=== PATIENT | female | born 1975 | race Caucasian/White ===

== ENCOUNTER 2022-12-12 05:44 | Day surgery (SDC) | payer SELFPAY ==
[2022-12-04 16:29] LABS: BASOPHILS % (AUTO) 0.5 % (0-1); EOSINOPHILS # (AUTO) 0.2 X10'3 (0-0.9); EOSINOPHILS % (AUTO) 2.3 % (0-6); LYMPHOCYTES # (AUTO) 1.2 X10'3 (1.1-4.8); LYMPHOCYTES % (AUTO) 18.7 % (21-51); MEAN CORPUSCULAR HEMOGLOBIN 31.4 PG (27.0-31.0); MEAN CORPUSCULAR HGB CONC 33.2 g/dL (33.0-36.5); MEAN CORPUSCULAR VOLUME 94.6 FL (78-98); MEAN PLATELET VOLUME 8.4 FL (7.4-10.4); MONOCYTES # (AUTO) 0.6 X10'3 (0-0.9); MONOCYTES % (AUTO) 9.1 % (2-12); NEUTROPHILS # (AUTO) 4.5 X10'3 (1.8-7.7); NEUTROPHILS % (AUTO) 69.4 % (42-75); PRE OP HEMATOCRIT 41.2 % (35.0-45.0); PRE OP HEMOGLOBIN 13.7 g/dL (12.0-16.0); PRE OP PLATELET COUNT 256 X10'3 (140-440); RED BLOOD COUNT 4.36 X10'6 (4.20-5.60); RED CELL DISTRIBUTION WIDTH 13.1 % (11.5-14.5)
[2022-12-04 16:44] LABS: HCG SERUM QL NEGATIVE
[2022-12-04 16:47] LABS: ALBUMIN 4.1 G/DL (3.4-5.0); ALBUMIN/GLOBULIN RATIO 1.2 (1.1-1.5); ALKALINE PHOSPHATASE 54 IU/L (46-116); BLOOD UREA NITROGEN 17 MG/DL (7-18); BUN/CREATININE RATIO 17.3 (6.6-38.0); CALCIUM 9.3 MG/DL (8.5-10.1); CHLORIDE 102 MMOL/L (99-107); CREATININE 0.98 MG/DL (0.40-0.90); PRE OP ALT 22 U/L (30-65); PRE OP ANION GAP 7 (8-16); PRE OP AST 16 U/L (10-37); PRE OP BILIRUB, TOTAL 0.3 MG/DL (0.0-1.0); PRE OP GLUCOSE 98 MG/DL (70-104); PRE OP POTASSIUM 3.9 MMOL/L (3.4-5.1); PRE OP SODIUM 140 MMOL/L (135-145); TOTAL CARBON DIOXIDE 30.9 MMOL/L (24-32); TOTAL PROTEIN 7.4 G/DL (6.4-8.2); eGFR 61 ML/MIN
[~2022-12-12] VITALS: Ht 165.1 cm; Wt 69.2 kg
[2022-12-12] VITALS (10 sets, daily range): BP systolic 99–124; BP diastolic 64–86
[~2022-12-12 05:44] MED LIST: MULTI VITAMIN; OMEGA 3; VITAMIN B12; VITAMIN C; VITAMIN D; ceFAZolin inj. 2,000 MG in dextrose 5%-water 100 ML IV ONE; famotidine 20mg tablet PO ONE; ringers solution, lacted 1,000 ML IV SCH
[2022-12-12] MEDS ORDERED: LIDOcaine 1% 30ml preserv. free vial ONE ×2 (07:03→07:20)
[2022-12-12] MEDS ORDERED: cocaine 4% topical solution 4ml bottle ONE (07:03)
[2022-12-12] MEDS ORDERED: epiNEPHrine 1 mg/ml inj ONE (07:03)
[2022-12-12] MEDS ORDERED: bacitracin 15gm ointment TP ONE (07:03)
[2022-12-12] MEDS ORDERED: tetracaine 1% (10mg/ml) pres. free inj. ONE (07:04)
[2022-12-12] MEDS ORDERED: TETRACAINE 0.5% 4 ML OPHTHALMIC DROPS ONE (07:08)
[2022-12-12] MEDS ORDERED: ondansetron/PF 4mg/2ml inj IV PRN (07:15)
[2022-12-12] MEDS ORDERED: morphine 4 MG/ML inj SYRINge IV PRN (07:15)
[2022-12-12] MEDS ORDERED: meperidine/PF 25mg/ml syringe IV PRN ×3 (07:15)
[2022-12-12] MEDS ORDERED: polyvinyl alcohol ophthalmic drops 15ml bottle EACHEYE PRN (07:15)
[2022-12-12] MEDS ORDERED: ringers solution, lacted 1,000 ML IV SCH (07:15)
[2022-12-12] MEDS ORDERED: proCHLORperazine 10 MG/2 ml inj IV PRN (07:15)
[2022-12-12] MEDS ORDERED: morphine 2 MG/ML inj. syringe IV PRN (07:15)
[2022-12-12] MEDS ORDERED: fentaNYL /PF 50mcg/ml 5ml ampule ONE (07:17)
[2022-12-12] MEDS ORDERED: neostigmine methylsulfate 1 MG/ML 10ml vial ONE (07:46)
[2022-12-12] MEDS ORDERED: sevoflurane 250ml liquid IH ONE (07:46)
[2022-12-12] MEDS ORDERED: glycopyrrolate 0.2mg/ml inj ONE (07:46)
[2022-12-12] MEDS ORDERED: LIDOcaine 1% w/EPI 1:100,000 30ml vial (MDV) IJ ONE (08:55)
[2022-12-12] MEDS ORDERED: rocuronium 10mg/ml inj IV ONE (10:18)
[2022-12-12] MEDS ORDERED: dexamethasone sod phosphate 4mg/ml inj. ONE (10:18)
[2022-12-12] MEDS ORDERED: ondansetron/PF 4mg/2ml inj ONE (10:18)
[2022-12-12] MEDS ORDERED: phenylephrine 10mg/ml inj. -priapism dosing ONE (10:18)
[2022-12-12] MEDS ORDERED: LIDOcaine 1%/PF 5ML 10 MG/ML VIAL ONE (10:18)
[2022-12-12] MEDS ORDERED: propofol inj 20 ML IV ONE (10:18)
--- NOTE | 2022-12-12 10:30 | NUR ---
Received from OR via BED, accompanied by Anesthesiologist and report given by Anesthesiologist. PATIENT WAKING UP, NO S/S OF PAIN, V/S WNL, SCD ON, 20G TO RUE, DRESSING OVER NOSE CDI AND STITCHING ABOVE EYES WITH OINTMENT AND NO OBSERVABLE DRAINAGE OR COMPLICATIONS OBSERVED
--- NOTE | 2022-12-12 11:40 | NUR ---
PATIENT A&OX4, DENIES PAIN, V/S WNL, SCD OFF, 20G TO RUE D/C, DRESSING OVER NOSE CDI AND STITCHING ABOVE EYES WITH OINTMENT AND NO OBSERVABLE DRAINAGE OR COMPLICATIONS OBSERVED. I HAVE REVIEWED D/C INSTRUCTIONS WITH PATIENT and they have verbalized understanding patient d/c home with all belongings and family gave transport home.
== END 2022-12-12 11:40 | disposition home or self-care (01) ==
LOC: PAS 05:44
PROVIDERS: ATTEND Specialist
DX: Z41.1 Encounter for cosmetic surgery (principal); H02.834 Dermatochalasis of left upper eyelid; H02.831 Dermatochalasis of right upper eyelid; Z98.890 Other specified postprocedural states; Z72.89 Other problems related to lifestyle; Z79.899 Other long term (current) drug therapy
CPT/HCPCS: 15822; 30420; 36415; 80053; 82948; 84703; 85025; 93005; A6402; J0171; J0690; J1100; J2370; J2405; J2704; J2710; J3010; J3490; J7030; J7060; J7120; Z7506; Z7508; Z7512; A4215; A4618; A6250; A6410; A6449; A7000